=== PATIENT | male | born 1955 | race African-American/Black ===

== ENCOUNTER 2017-04-11 16:25 | Emergency (ER) | payer OTHER ==
[2017-04-11 16:31] VITALS: BP 143/87; PULSE 86; TEMP 98.3; BMI 33.6
--- NOTE | 2017-04-11 16:42 | PDOC ---
History of Present Illness - General Chief Complaint: Pain, Acute Stated Complaint: LFT KNEE PAIN Time Seen by Provider: 04/11/17 16:36 History Source: Patient Exam Limitations: No Limitations - History of Present Illness Initial Comments: 04/11/17 16:37 [facility] [phone] 61-year-old male presents to the emergency department complaining of left-sided knee pain 2 weeks. Patient states while he was walking 2 weeks ago, he felt a sudden "pop" to his left knee which caused him excruciating pain with difficulty on weight-bear. Patient saw his PMD 2 days later and was sent for an MRI of the left knee which was done on 04/09/2017 at [facility]. Pain is described as 9/10 sharp nonradiating intermittent discomfort which is exacerbated on movement and weight-bear. The pain is alleviated minimally at rest. He denies any head injuries, neck/back pains, extremity numbness or tingling sensation. Patient has no other complaints. Occurred: reports: other (x2 weeks ago) Lower Extremity Pain Location: left: knee Method of Injury: Yes: twisted, other Past History - Past Medical History Allergies/Adverse Reactions: Allergies Allergy/AdvReac Type Severity Reaction Status Date / Time No Known Allergies Allergy Verified 04/11/17 16:28 Home Medications: Ambulatory Orders Diclofenac Sodium [Voltaren] 300 gm TP TID PRN 04/21/14 Ergocalciferol [Drisdol -] 50,000 unit PO WEEKLY 04/21/14 Zolpidem Tartrate [Ambien] 10 mg PO HS 04/21/14 Cyclobenzaprine HCl [Flexeril -] 10 mg PO TID PRN 12/22/15 HTN: No Liver Disease: No Seizures: No Other medical history: DENIES. - Surgical History Orthopedic Surgery: Yes (THR rt 09/2009 and THR left 06/30/14) - Suicide/Smoking/Psychosocial Hx Smoking History: Never smoked Have you smoked in the past 12 months: No If you are a former smoker, when did you quit?: 1989 Hx Alcohol Use: No Drug/Substance Use Hx: No Substance Use Type: None Hx Substance Use Treatment: Yes (detox, 12 step) Review of Systems - Review of Systems Able to Perform ROS?: Yes Comments:: 04/11/17 16:40 CONSTITUTIONAL: Absent: fever, chills, diaphoresis, generalized weakness, malaise, loss of appetite MUSCULOSKELETAL: Absent: myalgia, arthralgia, joint swelling SKIN: Absent: rash, itching, pallor Left knee pain Is the patient limited Angolan proficient: No *Physical Exam - Vital Signs Last Vital Signs Temp Pulse Resp BP Pulse Ox 98.3 F 86 18 143/87 98 04/11/17 16:26 04/11/17 16:26 04/11/17 16:26 04/11/17 16:26 04/11/17 16:26 - Physical Exam Comments: 04/11/17 16:40 GENERAL: Well developed, well nourished. Awake and alert. No acute distress. HEENT: Normocephalic, atraumatic. PERRLA, EOMI. No conjunctival pallor. Sclera are non- icteric. Moist mucous membranes. Oropharynx is clear. MUSCULOSKELETAL Normal range of motion at all joints. No bony deformities or tenderness. No CVA tenderness. EXTREMITIES: No cyanosis. No clubbing. No edema. No calf tenderness. SKIN: Warm and dry. Normal capillary refill. No rashes. No jaundice. Left knee Decreased R.O.M./pain +slight swelling Neg obv def Left hip F.R.O.M. neg pain on palp Left ankle F.R.O.M. 2+dp pulse Neg obv deformities neg pain on palp ED Treatment Course - RADIOLOGY Radiograph Interpretation: 04/11/17 16:49 04/09/2017: [facility] MRI of the left knee Impression: Moderate degenerative changes with medial meniscal tear Partial ACL tear of indeterminant age. There is a horizontal tear posterior horn medial meniscus extending into the body of the meniscus. There is mild medial extrusion of the meniscus *DC/Admit/Observation/Transfer Diagnosis at time of Disposition: Meniscal injury Qualifiers: Encounter type: initial encounter Laterality: left Qualified Code(s): S83.8X2A - Sprain of other specified parts of left knee, initial encounter - Discharge Dispostion Disposition: HOME Condition at time of disposition: Stable Admit: No - Referrals Referrals: Shailesh Danielson [Primary Care Provider] - Shahram Torres MD [Staff Physician] - - Patient Instructions Printed Discharge Instructions: DI for Meniscal Tear Additional Instructions: Ice; 20 mins on alternating with 20 mins off for 48 hours while awake. Rest Elevate Follow up with your orthopedic surgeon or the one listed on the discharge form. Dr. Torres/orthopedics [phone] Return to the ER for severe/persistent/worsening symptoms, extremity numbness/ tingling sensation.
== END 2017-04-11 17:09 | disposition home or self-care (01) ==
LOC: JER 16:25 → SUPCPDRO 16:25 → JERFT 16:25
DX: S83.204A Other tear of unspecified meniscus, current injury, left knee, initial encounter (principal); X50.1XXA Overexertion from prolonged static or awkward postures, initial encounter; Y93.01 Activity, walking, marching and hiking; Y92.89 Other specified places as the place of occurrence of the external cause; Y99.8 Other external cause status; Z96.643 Presence of artificial hip joint, bilateral
CPT/HCPCS: 99281-25

== ENCOUNTER 2017-04-22 06:00 | Day surgery (SDC) | payer OTHER ==
[2017-04-21 09:46] VITALS: BMI 34.2
[~2017-04-22 06:00] MED LIST: LACTATED RINGERS SOLUTION 1,000 ML IV SCH; ONDANSETRON 4 MG/2 ML VIAL IVPUSH PRN; PROMETHAZINE HCL 25 MG/1 ML VIAL IVPUSH PRN
[2017-04-22] MEDS ORDERED: LIDOCAINE 1%/EPI 1:100000 (20 ML MULTI DOSE VIAL) ONE ×2 (07:17→07:26)
[2017-04-22] MEDS ORDERED: BUPIVACAINE HCL/PF 2.5 MG/ML - 30 ML VIAL IJ ONE (07:17)
[2017-04-22] MEDS ORDERED: PROPOFOL 20 ML ONE ×7 (07:22→07:26)
[2017-04-22] MEDS ORDERED: COCAINE HCL 4% TOPICAL SOLUTION 4 ML BOTTLE TP ONE (07:26)
[2017-04-22] MEDS ORDERED: MIDAZOLAM HCL 2 MG/2 ML SINGLE DOSE VIAL ONE ×2 (07:28)
[2017-04-22] MEDS ORDERED: ceFAZolin SODIUM 1 GM VIAL ONE (07:28)
[2017-04-22] MEDS ORDERED: DEXAMETHASONE SOD PHOSPHATE 4 MG/1 ML VIAL ONE (07:29)
[2017-04-22] MEDS ORDERED: ONDANSETRON 4 MG/2 ML VIAL ONE (07:29)
[2017-04-22] MEDS ORDERED: KETOROLAC TROMETHAMINE 30 MG/1 ML VIAL ONE (07:30)
[2017-04-22] MEDS ORDERED: SEVOFLURANE 250 ML BTL ONE (07:31)
[2017-04-22] MEDS ORDERED: DESFLURANE GAS 240 ML BOTTLE IH ONE (07:31)
--- NOTE | 2017-04-22 07:48 | HP ---
[facility] - Chief Complaint Chief Complaint: left knee pain - Past Medical History Allergies/Adverse Reactions: Allergies Allergy/AdvReac Type Severity Reaction Status Date / Time No Known Allergies Allergy Verified 04/11/17 16:28 - Current Medications Current Medications: Home Medications Medication Instructions Recorded Oxycodone HCl/Acetaminophen 1 - 2 tab PO Q6H #30 tab MDD 8 04/22/17 [Percocet 5-325 mg Tablet -] Satellite Physical Exam - Physical Examination Vital Signs: Vital Signs Period Temp Pulse Resp BP Sys/Hoffman Pulse Ox Last 24 Hr 98.1 F 70 18 127/79 97 General Appearance: Well Nourished, Well Developed, Alert & Oriented x3 ENT: Clear Lung: Normal air movement Heart: Regular rate & rhythm Extremities: Other Neurological: Intact, Alert, Oriented [facility]ellite Impression/Plan - Impression/Plan Impression: left knee internal derangement Operative Procedure: left knee arthroscopy Date to be Performed: 04/22/17
[2017-04-22] MEDS ORDERED: LIDOCAINE 1%/EPI 1:100000 (50 ML MULTI DOSE VIAL) INF ONE (08:05)
--- NOTE | 2017-04-22 08:16 | OP ---
Operative Note - Note: Operative Date: 04/22/17 ([facility]) Pre-Operative Diagnosis: left knee internal derangement Operation: left knee arthroscopy with PMM, debridement chondroplasty trochlea Post-Operative Diagnosis: Same as Pre-op Surgeon: Shahram Torres Anesthesiologist/HOOK AND EYE ATTACHER: Armando Whaley Anesthesia: General, Local Specimens Removed: shavings Estimated Blood Loss (mls): 5 Operative Report Dictated: Yes
[2017-04-22] MEDS ORDERED: BUPIVACAINE HCL/PF 0.5% (5MG/ML) 10 ML VIAL IJ ONE (08:24)
[2017-04-22] MEDS ORDERED: oxyCODONE HCL 5 MG TABLET PO PRN (08:37)
[2017-04-22] MEDS ORDERED: oxyCODONE HCL 5 MG TABLET ONE (09:48)
[2017-04-22 10:10] VITALS: TEMP 97.8
[2017-04-22 10:34] VITALS: BP 121/76; PULSE 62
--- NOTE | 2017-04-22 17:02 | OP ---
DATE OF OPERATION: 04/22/2017 PREOPERATIVE DIAGNOSIS: Internal derangement, left knee. POSTOPERATIVE DIAGNOSIS: Internal derangement, left knee. PROCEDURE: Left knee arthroscopy, partial medial meniscectomy, and chondroplasty of the trochlea. SURGICAL ATTENDING: Shahram Torres MD ANESTHESIA: LMA. CLOSURE: 4-0 nylon. COMPLICATIONS: None. CONDITION: To recovery room in stable condition. DESCRIPTION OF PROCEDURE: Patient taken to the operating room on April 22, 2017. General anesthesia with LMA was administered by the anesthesiologist. IV Kefzol was administered prophylactically prior to the case (the patient had 2 hip replacements before). The left lower extremity was prepped and draped in the usual sterile fashion. The medial and lateral infrapatellar portal sites were infiltrated with 1% Xylocaine with epinephrine. Both portals were then made with a 15 blade for a blunt trocar. A scope trocar was then placed in the inferolateral portal, up in the suprapatellar pouch. The knee was inflated with a cocktail of 10 mL 1% Xylocaine, 10 mL 0.5% Marcaine, and 20 mL of arthroscopic saline. After allowing the cocktail time to anesthetize the joint, the scope was placed in lateral patella portal and up into the suprapatellar pouch. Pouch was visualized to be clean. Medial and lateral gutters visualized to be clean. The undersurface of the patella and trochlea had some extensive grade 3-4 changes. The articular cartilage was debrided using the shaver. With valgus stress on the knee, the medial compartment was entered. The medial meniscus was visualized and probed and found to have a complex tear. The posterior horn was debrided back to smooth, stable meniscal tissue with a meniscal biter and arthroscopic shaver. Medial femoral condyle was basically intact, some fissuring especially posterior, and some fissuring in the tibia. Otherwise it was left in situ at 90 degrees. The ACL was visualized and probed, found to be intact. In the figure-four position, the lateral compartment was entered. Lateral meniscus was visualized, probed and found to be intact. The lateral femoral condyle was visualized, probed and found to be intact, as well as the lateral tibial plateau. The knee was irrigated with copious amounts of irrigation. The portals were closed using 4-0 nylon. Prior to closure 20 mL of 0.5% Marcaine was infused into the knee through the trocar for postoperative analgesia. Sterile pressure dressing was placed over the knee. Patient awakened from anesthesia and transferred to recovery room in stable condition. No complications. Estimated blood loss was negligible. Christin RAMÍREZ/[id number]
== END 2017-04-22 10:40 | disposition home or self-care (01) ==
LOC: FASU 06:00
PROVIDERS: ATTEND Orthopaedic Surgery
PROC: 0SBD4ZZ Excision of Left Knee Joint, Percutaneous Endoscopic Approach (ICD-10-PCS; 2017-04-22)
PROC: 0SBD4ZZ Excision of Left Knee Joint, Percutaneous Endoscopic Approach (ICD-10-PCS; principal; 2017-04-22 07:42)
DX: M23.222 Derangement of posterior horn of medial meniscus due to old tear or injury, left knee (principal)
CPT/HCPCS: 29881; G0289; 94760

== ENCOUNTER 2018-05-30 14:30 | Emergency (ER) | payer OTHER ==
[2018-05-30 14:46] VITALS: BP 136/82; PULSE 61; TEMP 99.1; BMI 33.6
[2018-05-30] MEDS ORDERED: CYCLOBENZAPRINE HCL 10 MG TABLET (FP) PO ONE (15:13)
[2018-05-30] MEDS ORDERED: KETOROLAC TROMETHAMINE 60 MG/2 ML VIAL IM ONE (15:13)
--- NOTE | 2018-05-30 15:24 | PDOC ---
History of Present Illness - General Chief Complaint: Pain Stated Complaint: UPPER RIGHT PAIN RIB CAGE Time Seen by Provider: 05/30/18 14:54 History Source: Patient - History of Present Illness Timing/Duration: other Associated Symptoms: denies: diaphoresis, fever/chills, nausea/vomiting, shortness of breath Past History - Past Medical History Allergies/Adverse Reactions: Allergies Allergy/AdvReac Type Severity Reaction Status Date / Time No Known Allergies Allergy Verified 05/30/18 14:38 Home Medications: Ambulatory Orders Cyclobenzaprine HCl [Flexeril 10 mg] 10 mg PO TID PRN #9 tablet 05/30/18 Ibuprofen [Motrin -] 2 tab PO BID #14 tablet 05/30/18 Anemia: No Asthma: No Cancer: No Cardiac Disorders: No CVA: No COPD: No CHF: No DVT: No Dementia: No Diabetes: No Dialysis: No GI Disorders: No Disorders: No HTN: No Hypercholesterolemia: No Liver Disease: No Seizures: No Thyroid Disease: No - Surgical History Abdominal Surgery: No Appendectomy: No Cardiac Surgery: No Cholecystectomy: No Lung Surgery: No Neurologic Surgery: No Orthopedic Surgery: Yes (THR rt 09/2009 and THR left 06/30/14) - Suicide/Smoking/Psychosocial Hx Smoking History: Never smoked Have you smoked in the past 12 months: No If you are a former smoker, when did you quit?: 1989 Alcohol Use: No Drug/Substance Use Hx: No Substance Use Type: None Hx Substance Use Treatment: No Review of Systems - Review of Systems Constitutional: No: Chills, Fever Respiratory: No: Cough, Shortness of Breath Cardiac (ROS): Yes: Chest Pain. No: Lightheadedness, Palpitations, Syncope ABD/GI: No: Blood Streaked Bowels, Constipated, Diarrhea, Nausea, Rectal Bleeding, Vomiting *Physical Exam - Vital Signs Last Vital Signs Temp Pulse Resp BP Pulse Ox 99.1 F 61 16 136/82 99 05/30/18 14:39 05/30/18 14:39 05/30/18 14:39 05/30/18 14:39 05/30/18 14:39 - Physical Exam General Appearance: Yes: Appropriately Dressed, Mild Distress HEENT: positive: Normal Voice Neck: positive: Supple Respiratory/Chest: positive: Chest Tender (poorly localized ttp to anterior aspect of R lower chest, no ttp to RUQ otherwise, neg murpheys, neg CVAT), Lungs Clear, Normal Breath Sounds. negative: Respiratory Distress Cardiovascular: positive: Regular Rate, S1, S2 Gastrointestinal/Abdominal: positive: Soft. negative: Tender Musculoskeletal: negative: CVA Tenderness Integumentary: positive: Dry, Warm Neurologic: positive: Fully Oriented, Alert, Normal Mood/Affect Moderate Sedation - Procedure Monitoring Vital Signs: Procedure Monitoring Vital Signs Temperature 99.1 F 05/30/18 14:39 Pulse Rate 61 05/30/18 14:39 Respiratory Rate 16 05/30/18 14:39 Blood Pressure 136/82 05/30/18 14:39 O2 Sat by Pulse Oximetry (%) 99 05/30/18 14:39 Heart Score/ECG Review - ECG Intrepretation Comment:: 05/30/18 15:49 Twelve-lead EKG was performed and reviewed by me. There is normal sinus rhythm with a normal rate. The axis is normal. The intervals are normal. There are no ST or T wave abnormalities. Impression: Normal twelve-lead EKG ED Treatment Course - LABORATORY CBC & Chemistry Diagram: 05/30/18 15:30 05/30/18 15:30 - RADIOLOGY Radiology Studies Ordered: Category Date Time Status CHEST PA & LAT [RAD] Stat Radiology 05/30/18 15:08 Ordered Medical Decision Making - Medical Decision Making 05/30/18 15:13 62 yo M, h/o polysubstance abuse (narcotics), was on testosterone for low counts in past, here w/ severe R chest pain. Pt states he has had severe pain to R lower chest/RUQ x 2 weeks, sharp, intermittent, lasts for 2 hrs or more each time, may be worse when sitting and standing up. No SOB, diaphoreiss, n/v , palpitations, leg pain or swelling. No known cardiac disease and no cardiac w/ u in past per pt. No recent travel. No recent URI sxs. Denies change in BM, dysurua, hematuria, f/c. No trauma. No h/o similar pain in past. Has not taken anything for pain See exam Persistent R chest/RUQ pain Unlikely ACS, pericarditis or PE, consider GI source, i.e biliary, pancreatic, doubt renal colic/uti, possibly MSK given possible worsening w/ certain movements -pain control -ekg -cxr -labs -dispo pending 05/30/18 15:25 05/30/18 16:56 EKG, CXR and labs remarkable for the most point. Urine did have 1+ blood in it , but patient has no flank pain, CVA tenderness or acute urinary issues. No history of kidney stones in past. Patient reports significant improvement in pain with meds in ED. Will discharge with pain control and PMD follow-up for further evaluation *DC/Admit/Observation/Transfer Diagnosis at time of Disposition: Right-sided chest pain - Discharge Dispostion Disposition: HOME Condition at time of disposition: Improved - Prescriptions Prescriptions: Cyclobenzaprine HCl [Flexeril 10 mg] 10 mg PO TID PRN #9 tablet PRN Reason: Back Pain Ibuprofen [Motrin -] 2 tab PO BID #14 tablet - Referrals Referrals: Shailesh Danielson [Primary Care Provider] - - Patient Instructions Additional Instructions: The cause of your pain is unclear at this time as your EKG, chest x-ray and labs were all normal. It is possible that this pain is muscular in nature and we have sent anti- inflammatory muscle relaxant your pharmacy. If pain persists, please contact your primary care physician for another evaluation - Post Discharge Activity Forms/Work/School Notes: Back to Work
[2018-05-30] MEDS ORDERED: CYCLOBENZAPRINE HCL 10 MG TABLET (FP) ONE (15:37)
[2018-05-30] MEDS ORDERED: KETOROLAC TROMETHAMINE 60 MG/2 ML VIAL ONE (15:37)
[2018-05-30 15:54] LABS: URINE APPEARANCE CLEAR; URINE BILIRUBIN NEGATIVE (<2.0 mg/dL); URINE COLOR YELLOW; URINE GLUCOSE (UA) NEGATIVE (NEGATIVE); URINE KETONE NEGATIVE (NEGATIVE); URINE LEUK ESTERASE NEGATIVE (NEGATIVE); URINE NITRITE NEGATIVE (NEGATIVE); URINE PROTEIN NEGATIVE (NEGATIVE); URINE UROBILINOGEN NEGATIVE mg/dL (0.2-1.0)
[2018-05-30 15:56] LABS: EOS % 3.1 % (0-4.5); HEMATOCRIT 43.4 % (35.4-49); HEMOGLOBIN 13.9 GM/dL (11.7-16.9); LYMPH % 34.8 % (8-40); MEAN CELL VOLUME 90.4 fl (80-96); MEAN PLT VOLUME 9.2 fl (7.5-11.1); MONO % 7.5 % (3.8-10.2); NEUT % 53.6 % (42.8-82.8); PLATELET COUNT 192 K/MM3 (134-434); RDW 13.6 % (11.9-15.9)
[2018-05-30 16:16] LABS: EPI CELLS RARE /HPF (FEW); URINE MUCUS RARE
[2018-05-30 16:44] LABS: ALK PHOS 63 U/L (45-117); BLOOD UREA NITROGEN 8 mg/dL (7-18); CALCIUM 8.5 mg/dL (8.5-10.1); GLUCOSE,RANDOM 93 mg/dL (74-106)
[2018-05-30 16:45] LABS: ALBUMIN 3.8 g/dl (3.4-5.0); ANION GAP 8 MMOL/L (8-16); BILIRUBIN,TOTAL 0.3 mg/dL (0.2-1); CHLORIDE 107 mmol/L (98-107); CO2 25 mmol/L (21-32); CREATININE 0.9 mg/dL (0.55-1.3); LIPASE 75 U/L (73-393); SGOT/AST 27 U/L (15-37); SGPT/ALT 36 U/L (13-61); SODIUM 139 mmol/L (136-145); TOT PROT 7.9 g/dl (6.4-8.2)
--- NOTE | 2018-05-30 21:22 | EKG ---
Test Reason : Blood Pressure : / mmHG Vent. Rate : 074 BPM Atrial Rate : 074 BPM P-R Int : 180 ms QRS Dur : 082 ms QT Int : 382 ms P-R-T Axes : 039 -25 001 degrees QTc Int : 424 ms NORMAL SINUS RHYTHM NORMAL ECG WHEN COMPARED WITH ECG OF 12-JAN-2015 14:38, NO SIGNIFICANT CHANGE WAS FOUND Confirmed by JEFFY EVANGELISTA MD ([id number]) on 05/30/2018 9:22:02 PM Referred By: Confirmed By:JEFFY EVANGELISTA MD
== END 2018-05-30 16:58 | disposition home or self-care (01) ==
LOC: JERFT 14:30
PROC: 3E0233Z Introduction of Anti-inflammatory into Muscle, Percutaneous Approach (ICD-10-PCS; principal; 2018-05-30)
DX: R07.89 Other chest pain (principal); Z96.641 Presence of right artificial hip joint
CPT/HCPCS: 36415; 71046-TC-FY; 80053; 81003; 81015; 82550; 82553; 83690; 84484; 85025; 93005; 93010; 99281-25

== ENCOUNTER 2018-12-16 18:35 | Emergency (ER) | payer OTHER ==
--- NOTE | 2018-12-16 18:39 | PDOC ---
Rapid Medical Evaluation Time Seen by Provider: 12/16/18 18:37 Medical Evaluation: Allergies Allergy/AdvReac Type Severity Reaction Status Date / Time No Known Allergies Allergy Verified 05/30/18 14:38 12/16/18 18:37 HPI:L hip pain 2 days 5 years s/p L JUNIOR PE: ambulates with cane no gross deficits ORDERS: L hip x-ray 12/16/18 18:39 Discharge Disposition - Diagnosis Hip pain - Referrals - Patient Instructions - Post Discharge Activity
[2018-12-16 18:50] VITALS: BP 115/74; PULSE 74; TEMP 98; BMI 34.2
[2018-12-16] MEDS ORDERED: KETOROLAC TROMETHAMINE 60 MG/2 ML VIAL IM ONE (20:02)
[2018-12-16] MEDS ORDERED: KETOROLAC TROMETHAMINE 60 MG/2 ML VIAL ONE (20:08)
--- NOTE | 2018-12-16 20:10 | PDOC ---
History of Present Illness - General Chief Complaint: Pain Stated Complaint: HIP PROBLEM Time Seen by Provider: 12/16/18 18:37 History Source: Patient Exam Limitations: No Limitations - History of Present Illness Initial Comments: 12/16/18 20:03 CHIEF COMPLAINT: Left hip pain HISTORY OF PRESENT ILLNESS: This 63-year-old male with past medical history of bilateral hip replacements performed at [facility] 2014 presents emergency Department with atraumatic left hip pain starting 2 days ago. Patient rates his pain 9/10 but is unable to describe the pain. He was concerned when he was unable to get out of the shower today due to the pain. Patient reports requiring cane to ambulate over these past 2 days. He denies any numbness or tingling distal to the pain, saddle anesthesia, incontinence of bladder or bowel. REVIEW OF SYSTEMS: GENERAL: Afebrile, denies any weakness RESPIRATORY: No cough, wheezing, or hemoptysis. CARDIAC: No chest pain or shortness of breath MUSCULOSKELETAL: Pain to left posterior hip. No point tenderness. SKIN : No erythema, no bruising, no deformity. GI/: Denies any abdominal pain, no urinary difficulty, incontinence or urinary retention. RECTAL: Denies any difficulty this A.m. NEUROLOGICAL: Denies any numbness or tingling. No neurosensory deficits. PHYSICAL EXAM: GENERAL: The patient is awake, alert, and fully oriented, in no acute distress. RESPIRATORY: Lungs clear bilaterally, no rhonchi wheezes or crackles CARDIAC: S1-S2 audible, no murmur rub or gallop MUSCULOSKELETAL: Pain to left posterior hip. Palpable muscle spasm present to posterior hip muscles inferior to left gluteus erich. No sensory deficit. Less than 2 second cap refill, +2 pedal pulses. No spinal point tenderness. Normal reflexive and no deficits to sensation or strength. GI/: Abdomen soft, nontender, nondistended. No rebound tenderness. No masses palpable. RECTAL: Deferred patient with no neurological findings SKIN: Warm, Dry, normal turgor, no erythema, no edema no bruising. Past History - Past Medical History Allergies/Adverse Reactions: Allergies Allergy/AdvReac Type Severity Reaction Status Date / Time No Known Allergies Allergy Verified 12/16/18 18:44 Home Medications: Ambulatory Orders Cyclobenzaprine HCl [Flexeril 10 mg] 10 mg PO TID PRN #9 tablet 05/30/18 Ibuprofen [Motrin -] 2 tab PO BID #14 tablet 05/30/18 Naproxen Sodium 440 mg PO BID #60 tablet 12/16/18 Anemia: No Asthma: No Cancer: No Cardiac Disorders: No CVA: No COPD: No CHF: No DVT: No Dementia: No Diabetes: No Dialysis: No GI Disorders: No Disorders: No HTN: No Hypercholesterolemia: No Liver Disease: No Seizures: No Thyroid Disease: No - Surgical History Abdominal Surgery: No Appendectomy: No Cardiac Surgery: No Cholecystectomy: No Lung Surgery: No Neurologic Surgery: No Orthopedic Surgery: Yes (THR rt 09/2009 and THR left 06/30/14) - Suicide/Smoking/Psychosocial Hx Smoking History: Never smoked Have you smoked in the past 12 months: No If you are a former smoker, when did you quit?: 1989 Information on smoking cessation initiated: No Hx Alcohol Use: No Drug/Substance Use Hx: No Substance Use Type: None Hx Substance Use Treatment: No Trauma Specific PMHX - Complaint Specific PMHX Arthritis: Yes *Physical Exam - Vital Signs Last Vital Signs Temp Pulse Resp BP Pulse Ox 98 F 74 17 115/74 98 12/16/18 18:39 12/16/18 18:39 12/16/18 18:39 12/16/18 18:39 12/16/18 18:39 Medical Decision Making - Medical Decision Making 12/16/18 20:10 A/P: 63-year-old male with atraumatic left hip pain for 2 days Palpable muscle spasms presents to the posterior left hip medially inferior to the gluteus erich No neurosensory deficits present [facility]-rays performed [facility] medical evaluation is read by me: Prosthesis is in place. No interruption in the hardware. No acute fractures or dislocations are noted. Toradol 60 mg IM now Valium 5 mg orally Discharge home *DC/Admit/Observation/Transfer Diagnosis at time of Disposition: Other muscle spasm - Discharge Dispostion Disposition: HOME Condition at time of disposition: Stable Decision to Admit order: No - Prescriptions Prescriptions: Naproxen Sodium 440 mg PO BID #60 tablet - Referrals Referrals: Shailesh Danielson [Primary Care Provider] - - Patient Instructions Additional Instructions: rest. Take Tylenol as needed for pain. Follow manufacturers instructions for appropriate dosage. Take naproxen 440mg twice a day as needed for pain. Make an appointment with your orthopedic surgeon for continued evaluation. Return to emergency department for discoloration of the foot, numbness or tingling to the foot, worsening pain, or any other concerns. Thank you very much for choosing us to provide your emergent healthcare needs. - Post Discharge Activity
[2018-12-16] MEDS ORDERED: diazePAM 5 MG TABLET PO ONE (20:13)
[2018-12-16] MEDS ORDERED: diazePAM 5 MG TABLET ONE (20:16)
== END 2018-12-16 20:25 | disposition home or self-care (01) ==
LOC: JER 18:35 → JERFT 18:35
PROC: 3E0233Z Introduction of Anti-inflammatory into Muscle, Percutaneous Approach (ICD-10-PCS; principal; 2018-12-16)
DX: M62.838 Other muscle spasm (principal); M25.552 Pain in left hip; Z96.643 Presence of artificial hip joint, bilateral
CPT/HCPCS: 73523-TC-FY; 99281-25

== ENCOUNTER 2020-12-15 19:14 | Emergency (ER) | payer OTHER ==
[2020-12-15 19:20] VITALS: BP 133/83; PULSE 81; TEMP 97; BMI 35.6
[2020-12-15] MEDS ORDERED: ACETAMINOPHEN 325 MG TABLET (FP) PO ONE (19:52)
[2020-12-15] MEDS ORDERED: ACETAMINOPHEN 325 MG TABLET (FP) ONE (20:41)
== END 2020-12-15 22:05 | disposition home or self-care (01) ==
LOC: JERFT 19:14
DX: L03.116 Cellulitis of left lower limb (principal)
CPT/HCPCS: 76882-TC-RT-FY; 93971-TC; 99284-25